=== PATIENT | male | born 1990 | race Caucasian/White ===

== ENCOUNTER 2017-05-06 06:17 | Emergency (ER) | payer BC ==
[~2017-05-06] VITALS: Ht 170.2 cm; Wt 72.7 kg
[2017-05-06 06:20] VITALS: BP 158/87; PULSE 89; TEMP 98.2
[2017-05-06] MEDS ORDERED: ULTRAM 50MG TAB50 MG PO (07:26)
== END 2017-05-06 07:30 | disposition home or self-care (01) ==
LOC: COL.ER 06:17
DX: S20.211A Contusion of right front wall of thorax, initial encounter (principal); W50.0XXA Accidental hit or strike by another person, initial encounter; Y92.39 Other specified sports and athletic area as the place of occurrence of the external cause
CPT/HCPCS: A9284

== ENCOUNTER 2021-09-24 16:30 | Emergency (ER) | payer BC ==
[~2021-09-24] VITALS: Ht 170.2 cm; Wt 79.5 kg
[~2021-09-24 16:30] MED LIST: ULTRAM 50MG TAB50 MG PO
[2021-09-24 20:18] LABS: BASO % 0.5 % (0.0-2.0); EOS # 0.2 K/mm3 (0.0-0.7); EOS % 2.4 % (0-4.0); GRAN # 3.6 K/mm3 (1.4-6.5); GRAN % 56.2 % (42.2-75.2); HEMATOCRIT 44.4 % (42.0-52.0); HEMOGLOBIN 15.5 g/dl (13.5-18.0); LYMPH # 2.1 K/mm3 (1.2-3.4); LYMPH % 32.8 % (20.0-51.0); MEAN CELL VOLUME 91 fl (80.0-100.0); MEAN CORPUSCULAR HEMOGLOBIN 32 pg (27.0-31.0); MEAN CORPUSCULAR HGB CONC 35 g/dl (33.0-37.0); MEAN PLATELET VOLUME 9.1 fl (7.4-10.4); MONO # 0.5 K/mm3 (0.1-0.6); MONO % 7.9 % (1.7-9.3); PLATELET COUNT 281 K/mm3 (130-400); RED BLOOD COUNT 4.87 M/mm3 (4.20-5.60); REDCELL DISTRIBUTION WIDTH-CV 12.1 % (11.5-14.5)
[2021-09-24 20:43] LABS: ALANINE AMINOTRANSFERASE 28 U/L (0-55); ALBUMIN 4.2 gm/dL (3.5-5.0); ALKALINE PHOSPHATASE 38 U/L (40-150); ANION GAP 10 mmol/L (7-16); AST,SGOT 21 U/L (5-34); BILIRUBIN,TOTAL 0.6 mg/dL (0.2-1.2); BLOOD UREA NITROGEN 20 mg/dL (9-21); CALCIUM 9.8 mg/dL (8.4-10.2); CARBON DIOXIDE 29 mmol/L (22-29); CHLORIDE 99 mmol/L (98-107); CREATININE, serum 1.37 mg/dL (0.72-1.25); GLUCOSE 80 mg/dL (70-99); POTASSIUM 3.9 mmol/L (3.5-4.5); SODIUM 138 mmol/L (136-145); TOTAL PROTEIN 7.3 gm/dL (6.2-8.1)
[2021-09-24 20:51] LABS: ACETAMINOPHEN < 1.0 ug/mL (10-30); ALCOHOL(ethanol),MEDICAL < 10 mg/dL (0-10); SALICYLATE < 5.0 mg/dL (15.0-30.0)
[2021-09-24 21:02] LABS: TSH w REFLEX 0.834 uIU/mL (0.350-4.940)
[2021-09-24 21:32] LABS: COLLECTION METHOD CLEAN CATCH
[2021-09-24 21:47] LABS: MUCOUS Present /lpf; PH 5 (5-8); SQUAMOUS EPITHELIAL None Seen /hpf; URINE APPEARANCE Clear; URINE BACTERIA None Seen /hpf; URINE BILIRUBIN Negative (NEGATIVE); URINE BLOOD Negative (NEGATIVE); URINE COLOR Yellow; URINE GLUCOSE Negative (NEGATIVE); URINE KETONE Negative (NEGATIVE); URINE LEUKOCYTE ESTERASE Negative (NEGATIVE); URINE NITRATE Negative (NEGATIVE); URINE PROTEIN(semi-quant) Negative (NEGATIVE); URINE RBC 0-2 /hpf; URINE UROBILINOGEN Negative (NEGATIVE)
[2021-09-24 22:22] LABS: TRICYCLIC ANTIDEPRESS URINE NEGATIVE
[2021-09-25 06:30] VITALS: TEMP 97.4
[2021-09-25 09:45] VITALS: BP 102/53; PULSE 61
== END 2021-09-25 09:45 ==
LOC: COL.ER 16:30
PROVIDERS: Nurse Practitioner Primary Care
DX: F15.10 Other stimulant abuse, uncomplicated (principal); R45.851 Suicidal ideations; F17.210 Nicotine dependence, cigarettes, uncomplicated; Z20.822 Contact with and (suspected) exposure to COVID-19

== ENCOUNTER 2021-10-23 19:14 | Emergency (ER) | payer BC ==
[~2021-10-23] VITALS: Ht 170.2 cm; Wt 86.4 kg
[2021-10-23 19:34] VITALS: TEMP 98.4
[2021-10-23 21:53] VITALS: BP 147/113; PULSE 102
== END 2021-10-23 19:39 | disposition home or self-care (01) ==
LOC: COL.ER 19:14
DX: F15.10 Other stimulant abuse, uncomplicated (principal); F17.210 Nicotine dependence, cigarettes, uncomplicated

== ENCOUNTER 2021-10-24 06:39 | Emergency (ER) | payer BC ==
[~2021-10-24] VITALS: Ht 170.2 cm; Wt 84.1 kg
[2021-10-24 06:51] VITALS: TEMP 97.5
[2021-10-24 07:20] LABS: BASO % 0.3 % (0.0-2.0); EOS % 0.1 % (0-4.0); GRAN # 4.9 K/mm3 (1.4-6.5); GRAN % 66.3 % (42.2-75.2); HEMATOCRIT 46.2 % (42.0-52.0); HEMOGLOBIN 16.2 g/dl (13.5-18.0); LYMPH # 1.6 K/mm3 (1.2-3.4); MEAN CELL VOLUME 90 fl (80.0-100.0); MEAN CORPUSCULAR HEMOGLOBIN 32 pg (27.0-31.0); MEAN CORPUSCULAR HGB CONC 35 g/dl (33.0-37.0); MEAN PLATELET VOLUME 9.1 fl (7.4-10.4); MONO # 0.8 K/mm3 (0.1-0.6); PLATELET COUNT 251 K/mm3 (130-400); RED BLOOD COUNT 5.11 M/mm3 (4.20-5.60); REDCELL DISTRIBUTION WIDTH-CV 12.3 % (11.5-14.5)
[2021-10-24 07:41] LABS: ALBUMIN 5.1 gm/dL (3.5-5.0); BILIRUBIN,TOTAL 1.1 mg/dL (0.2-1.2); CALCIUM 10.5 mg/dL (8.4-10.2); CREATININE, serum 1.35 mg/dL (0.72-1.25); POTASSIUM 3.8 mmol/L (3.5-4.5); TOTAL PROTEIN 8.4 gm/dL (6.2-8.1)
[2021-10-24 07:58] LABS: COLLECTION METHOD CLEAN CATCH
[2021-10-24 08:04] LABS: MUCOUS Present (NOT PRESENT); PH 5 (5-8); SQUAMOUS EPITHELIAL 0-2 /hpf (0-10); URINE APPEARANCE Hazy (CLEAR/HAZY); URINE BACTERIA None Seen (NONE SEEN); URINE BILIRUBIN Negative (NEGATIVE); URINE BLOOD Negative (NEGATIVE); URINE COLOR Yellow (YELLOW); URINE GLUCOSE Negative (NEGATIVE); URINE KETONE 1+ (NEGATIVE); URINE LEUKOCYTE ESTERASE Negative (NEGATIVE); URINE NITRATE Negative (NEGATIVE); URINE PROTEIN(semi-quant) Negative (NEGATIVE); URINE RBC 0-2 /hpf (0-2); URINE UROBILINOGEN Negative (NEGATIVE)
[2021-10-24 08:57] LABS: TRICYCLIC ANTIDEPRESS URINE NEGATIVE
[2021-10-24 10:27] VITALS: BP 135/83; PULSE 99
== END 2021-10-24 10:27 | disposition home or self-care (01) ==
LOC: COL.ER 06:39
PROVIDERS: Family Medicine
DX: F15.10 Other stimulant abuse, uncomplicated (principal); E86.0 Dehydration
CPT/HCPCS: J2060; J2405; J7030; J7120

== ENCOUNTER 2021-10-24 20:14 | Emergency (ER) | payer BC ==
[~2021-10-24] VITALS: Ht 170.2 cm; Wt 84.1 kg
[2021-10-24 20:19] VITALS: BP 174/105; PULSE 72; TEMP 97.5
[2021-10-24 22:02] LABS: ALBUMIN 4.8 gm/dL (3.5-5.0); BILIRUBIN,TOTAL 1.2 mg/dL (0.2-1.2); CALCIUM 10.4 mg/dL (8.4-10.2); CREATININE, serum 1.36 mg/dL (0.72-1.25); POTASSIUM 3.9 mmol/L (3.5-4.5); TOTAL PROTEIN 7.9 gm/dL (6.2-8.1)
== END 2021-10-25 00:15 | disposition home or self-care (01) ==
LOC: COL.ER 20:14
PROVIDERS: Student in an Organized Health Care Education/Training Program
DX: F15.10 Other stimulant abuse, uncomplicated (principal); E86.0 Dehydration; F17.210 Nicotine dependence, cigarettes, uncomplicated
CPT/HCPCS: J7030